=== PATIENT | female | born 2000 | race Caucasian/White ===

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

== ENCOUNTER 2020-10-07 17:12 | Emergency (ER) | payer OTHER ==
[~2020-10-07] VITALS: Ht 160 cm; Wt 52.6 kg
[~2020-10-07 17:12] MED LIST changes: +PREDNISONE 20 M20 M1 PO
[2020-10-07 18:39] LABS: ABSOLUTE EOSINOPHILS 0.2 thou/uL (0.0-0.7); ABSOLUTE LYMPHOCYTES 1.9 thou/uL (0.8-5.3); ABSOLUTE MONOCYTES 0.6 thou/uL (0.0-1.2); ABSOLUTE NEUTROPHILS 4.6 thou/uL (1.6-8.1); BASOPHILS 0.7 %; EOSINOPHILS 2.3 %; HEMATOCRIT 39.4 % (37.0-47.0); HEMOGLOBIN 13.4 gm/dL (12.0-15.0); MCH 30.7 pg (26.0-34.0); MCV 90.3 fL (80.0-100.0); MONOCYTES 7.7 %; MPV 9.3 fl. (7.2-11.1); NUCLEATED RBCS 0 /100WBC; PLATELET COUNT* 225 thou/uL (150-400); POLYS 63.3 %; RBC 4.37 mil/uL (4.20-5.00); RDW-CV 12.6 % (10.5-14.5); WBC 7.3 thou/uL (4.0-11.0)
[2020-10-07 18:47] LABS: CALCIUM 9.2 mg/dL (8.5-10.1); CREATININE 0.8 mg/dL (0.6-1.3)
[2020-10-07 18:52] LABS: ALBUMIN 4.5 g/dL (3.4-5.0); TOTAL BILIRUBIN 0.5 mg/dL (<0.1-1.0); TOTAL PROTEIN 7.5 g/dL (6.4-8.2)
[2020-10-07 19:20] LABS: URINE BILIRUBIN NEGATIVE (Negative); URINE BLOOD NEGATIVE (Negative); URINE CLARITY CLEAR; URINE COLOR YELLOW; URINE GLUCOSE-RANDOM NEGATIVE (Negative); URINE KETONES 1+ (Negative); URINE LEUKOCYTES-REFLEX NEGATIVE (Negative); URINE NITRITE-REFLEX NEGATIVE (Negative); URINE PROTEIN NEGATIVE (Negative); URINE SPECIFIC GRAVITY 1.025 (1.005-1.030)
[2020-10-07 21:18] VITALS: BP 121/70
== END 2020-10-07 21:22 | disposition home or self-care (01) ==
LOC: M.ERS 17:12
PROVIDERS: Physician Assistant
DX: B27.90 Infectious mononucleosis, unspecified without complication (principal); R10.12 Left upper quadrant pain; Z20.822 Contact with and (suspected) exposure to COVID-19

== ENCOUNTER 2020-11-19 18:41 | Emergency (ER) | payer OTHER ==
[~2020-11-19] VITALS: Ht 162.6 cm; Wt 53.5 kg
[2020-11-19 19:06] LABS: URINE BILIRUBIN NEGATIVE (Negative); URINE BLOOD TRACE (Negative); URINE COLOR YELLOW; URINE GLUCOSE-RANDOM NEGATIVE (Negative); URINE KETONES 2+ (Negative); URINE LEUKOCYTES-REFLEX TRACE (Negative); URINE NITRITE-REFLEX NEGATIVE (Negative); URINE PROTEIN NEGATIVE (Negative); URINE SPECIFIC GRAVITY >= 1.030 (1.005-1.030); URINE UROBILINOGEN 0.2 E.U./dl (0.2-1.0)
[2020-11-19 19:08] LABS: URINE CLARITY HAZY
[2020-11-19 19:17] LABS: BACTERIA-REFLEX 1-9 Few /HPF (None Seen); CASTS None Seen /LPF (None Seen); CRYSTALS None Seen /LPF (None Seen); SQUAMOUS >10 Many /LPF (0-3); URINE RBC 0-2 Rare /HPF (0-2); URINE WBC-REFLEX 0-5 Rare /HPF (0-5)
[2020-11-19 19:19] LABS: ABSOLUTE EOSINOPHILS 0.1 thou/uL (0.0-0.7); ABSOLUTE LYMPHOCYTES 0.4 thou/uL (0.8-5.3); ABSOLUTE MONOCYTES 0.4 thou/uL (0.0-1.2); ABSOLUTE NEUTROPHILS 3.8 thou/uL (1.6-8.1); BASOPHILS 0.5 %; EOSINOPHILS 1.3 %; HEMATOCRIT 36.6 % (37.0-47.0); HEMOGLOBIN 12.8 gm/dL (12.0-15.0); LYMPHOCYTES 8.5 %; MCH 31.3 pg (26.0-34.0); MCHC 34.8 g/dL (28.0-37.0); MCV 90.1 fL (80.0-100.0); MONOCYTES 8.2 %; MPV 8.7 fl. (7.2-11.1); NUCLEATED RBCS 0 /100WBC; PLATELET COUNT* 161 thou/uL (150-400); POLYS 81.5 %; RBC 4.07 mil/uL (4.20-5.00); RDW-CV 12.5 % (10.5-14.5); WBC 4.7 thou/uL (4.0-11.0)
[2020-11-19 19:26] LABS: CALCIUM 8.7 mg/dL (8.5-10.1); CREATININE 0.8 mg/dL (0.6-1.3); POTASSIUM 3.4 mmol/L (3.5-5.1)
[2020-11-19 19:30] LABS: TOTAL BILIRUBIN 0.6 mg/dL (<0.1-1.0); TOTAL PROTEIN 6.9 g/dL (6.4-8.2)
[2020-11-19] MEDS ORDERED: TRAMADOL 50 MG50 MG PO (20:32)
[2020-11-19] MEDS ORDERED: NAPROSYN500 MG PO (20:32)
[2020-11-19 20:41] VITALS: BP 109/46
== END 2020-11-19 20:41 | disposition home or self-care (01) ==
LOC: M.ERS 18:41
PROVIDERS: Physician Assistant
DX: R10.12 Left upper quadrant pain (principal); Z20.822 Contact with and (suspected) exposure to COVID-19; R10.11 Right upper quadrant pain; R50.9 Fever, unspecified